=== PATIENT | female | born 1975 | race Hispanic/Latino ===

== ENCOUNTER 2020-02-12 21:39 | Observation (INO) | payer SELFPAY ==
[2020-02-12 22:20] LABS: Hemoglobin 13.3 g/dL (12.0-16.0); Mean Corpuscular HGB CONC 32.8 g/dL (32.0-36.0); Mean Corpuscular Hemoglobin 29.3 pg (27.0-31.0); Mean Corpuscular Volume 89.5 fL (78.0-98.0); Mean Platelet Volume 7.5 fL (7.4-10.4); Platelet Count 297 thou/uL (130-400); RBC Distribution Width 11.9 % (11.5-14.5); Red Blood Cell (RBC) Count 4.55 mill/uL (4.20-5.40); White Blood Cell (WBC) Count 8.3 thou/uL (4.8-10.8)
[2020-02-12 22:31] LABS: Eosinophils 4 % (0-10); Lymphocytes 44 % (21-51); MDiff Complete? YES; Monocytes 3 % (0-10); Neutrophil 49 % (42-75); Platelet Morphology Comment Appears Adequate
[2020-02-12 22:39] LABS: ALT (SGPT) 14 U/L (8-55); AST (SGOT) 14 U/L (5-34); Albumin 4.4 g/dL (3.5-5.0); Alkaline Phosphatase 74 U/L (40-110); Anion Gap 11 mmol/L (10-20); BUN (Urea Nitrogen) 11 mg/dL (7.0-18.7); Bilirubin, Total 0.3 mg/dL (0.2-1.2); Calc. Creatinine Clearance 0 mL/min (70-130); Calcium 9.2 mg/dL (7.8-10.44); Carbon Dioxide 27 mmol/L (22-29); Chloride 106 mmol/L (98-107); Estimated GFR-MDRD 78; Globulin 3.5 g/dL (2.4-3.5); Glucose 82 mg/dL (70-105); Potassium 3.4 mmol/L (3.5-5.1); Protein, Total 7.9 g/dL (6.0-8.3); Sodium 141 mmol/L (136-145)
[2020-02-12] MEDS ORDERED: Aspirin Chewable 81 MG TAB ONE (23:33)
[2020-02-12] MEDS ORDERED: hydrALAZINE 20 MG/ML VIAL SLOW IVP PRN (23:52)
[2020-02-12] MEDS ORDERED: Labetalol HCl 100 MG/20 ML VIAL SLOW IVP PRN (23:52)
[2020-02-12] MEDS ORDERED: Acetaminophen 500 MG TAB ONE (23:56)
[2020-02-13] MEDS ORDERED: Ondansetron ODT 4 MG TAB PO PRN (00:31)
[2020-02-13] MEDS ORDERED: Acetaminophen 325 MG TAB PO PRN (00:31)
[2020-02-13] MEDS ORDERED: Calcium Carbonate 500 MG ChewTAB PO PRN (00:31)
[2020-02-13] MEDS ORDERED: Senokot S 8.6-50 MG TAB PO PRN (00:31)
--- NOTE | 2020-02-13 01:08 | HP ---
PRIMARY CARE PHYSICIAN: Dr. Quispe. CHIEF COMPLAINT: Aphasia. HISTORY OF PRESENT ILLNESS: The patient is a 44-year-old female with no significant past medical history who reports to the ER for the above complaint. The patient reports that at 2114 this evening, while sitting on the couch, she developed acute aphasia. She also reports an associated posterior headache described as "when water is flushed up your nose quickly," exacerbated by nothing and relieved by Tylenol. She has never had a headache like this before. She denies any recent trauma or falls. She is not on any blood thinners. She has no history of migraine headaches. NO history DVT/ PE, not taking hormones. Denies vision changes. She denies any jaw claudication or focal motor deficit. She denies any dysphagia or inability to control secretions. She denies any fever or chills and she does not take any home medications. Her family members witnessed the episode and wanted to call 911. At first, she did not want them to call EMS; however, her daughter decided to call EMS. In the ER, patient was afebrile with a temperature of 98.6, normal blood pressure, normal pulse, normal respirations, reported 7/10 pain, 98% on room air. CT of the brain was negative for any acute process. Initial troponin was negative. Potassium was 3.4. CBC was unremarkable. Glucose was 106. The patient was given aspirin and 1 g of Tylenol and her symptoms resolved. She was in NIH of 1 for sensory deficit to the left face and left lower extremity. PAST MEDICAL HISTORY: None. PAST SURGICAL HISTORY: Tubal ligation. SOCIAL HISTORY: The patient lives with her family at home. She ambulates without any assistive devices. She does not work. She has no history of smoking, illicit drug use, or alcohol intake. FAMILY HISTORY: Contributory for diabetes and cardiac disease. ALLERGIES: NO KNOWN DRUG ALLERGIES. HOME MEDICATIONS: None. REVIEW OF SYSTEMS: All review of systems are negative unless otherwise stated in HPI. PHYSICAL EXAMINATION: VITAL SIGNS: Temperature 98.6, blood pressure 116/73, pulse 65, respirations 16 , 99% on room air. 0/10 pain. CONSTITUTIONAL: Patient is alert and oriented to person, place, and time. No acute distress. Nontoxic in appearance. HEENT: Head is atraumatic and normocephalic. Eyes, PERRLA. Extraocular muscles intact. Sclerae nonicteric. ENT: EACs patent bilaterally. TMs intact. Nares patent bilaterally. Oropharynx is clear. Uvula midline. Moist mucous membranes. No oral lesions. NECK: Full range of motion. No cervical tenderness. No cervical adenopathy. No JVD. RESPIRATIONS/CHEST: Respirations even and nonlabored. Clear to auscultation. No rhonchi, wheezes, or rales. CARDIOVASCULAR: Regular rate and rhythm. S1 and S2 appreciated. No murmurs, rubs, or gallops. ABDOMEN: Soft, nontender. Active bowel sounds. No guarding. No rigidity. No rebound tenderness. Negative Rovsing. Negative Christiansen sign. No abdominal bruit auscultated. BACK: Full range of motion. No central spinous tenderness. No CVA tenderness. EXTREMITIES: Bilateral upper extremities, full range of motion. Strength normal. Sensation intact. Palpable radial pulses. Lower extremities; full range of motion, normal strength, sensation intact. Palpable pedal pulses. No swelling. NEUROLOGIC: Cranial nerves 2 through 12 intact. No nystagmus. NIH of 1 for sensory deficit to the left lower extremity. No focal motor deficits. Normal gait. PSYCHIATRIC: A and O x3. Normal affect. LABS AND DIAGNOSTICS: EKG, sinus bradycardia at 57 beats per minute. No ST elevations. No T-wave inversions. Initial troponin negative. CT of brain negative for any acute process. Chest x-ray negative for any acute process. Sodium 141, potassium 3.4, chloride 106, carbon dioxide 27, BUN 11, creatinine 0.80, glucose 82, T bilirubin 0.3, AST 14, ALT 14, alkaline phosphatase 74, albumin 4.4. WBCs 8.3 , hemoglobin 13.3, hematocrit 40.7, platelets 297. IMPRESSION AND PLAN: 1. Transient ischemic attack, rule out stroke. We will admit the patient to stroke floor observation status. Expected length of stay less than 2 midnights. Patient last seen normal at 2114, reported acute onset of posterior headache and expressive aphasia. Headache resolved with Tylenol. Aphasia resolved. Upon examination, patient had NIH of 1 for some decreased sensation to left lower extremity. CT of brain was negative. EKG was sinus joselin. We will continue aspirin. We will add a statin. We will get an MRI, carotid Doppler, and echo. We will check a TSH, fasting lipid, UA, urine , folate, and B12 level. We will consult PT/ OT and neuro. We will perform neuro checks q.4 NIH q.shift. We will allow permissive hypertension. 2. Hypokalemia. The patient presented with a 3.4 potassium, mild. We will recheck in the a.m. 3. SCDs for deep venous thrombosis prophylaxis. No gastrointestinal prophylaxis. The patient is a full code. Medical contact is Gisella Perdomo, her daughter, [phone]. 4. Discussed the case with Dr. Cueto. Job ID: [id number] [facility]
[2020-02-13 02:12] VITALS: BMI 36.6
[2020-02-13 02:22] LABS: Bacteria/HPF 2+ HPF (None Seen); Bilirubin Negative (Negative); Blood, Urine 2+ (Negative); Clarity Turbid (Clear); Glucose, Urine (Dipstick) Normal (Negative); Ketone, Urine Negative (Negative); Leukocyte 500 Leu/uL (Negative); Nitrite 2+ (Negative); Pregnancy Test - Urine (BHCG) Negative (Negative); Protein, Urine (Dipstick) 20 mg/dL (Neg-Trace); Specific Gravity, Urine 1.029 (1.002-1.036); Squamous Epithelial 21-50 HPF (0-3); Urobilinogen Normal mg/dL (Less than 2); WBC/HPF Greater than 50 HPF (0-3)
[2020-02-13 02:23] LABS: Pregu Control Background? CLEAR/WHITE (CLR/WHITE); Pregu Control Bar Appear? YES (CONTROL BAR); Specific Gravity 1.029 (1.002-1.036)
[2020-02-13] MEDS: cefTRIAXone\\ROCEPHIN 1 GM in Sodium Chloride 0.9% 100 ML IVPB SCH (03:25)
[2020-02-13 05:31] LABS: Anion Gap 10 mmol/L (10-20); BUN (Urea Nitrogen) 10 mg/dL (7.0-18.7); Calc. Creatinine Clearance 142 mL/min (70-130); Calcium 8.6 mg/dL (7.8-10.44); Carbon Dioxide 24 mmol/L (22-29); Cardiac Risk 4.2 (Less than 4.5); Chloride 107 mmol/L (98-107); Cholesterol 176 mg/dl (< 200 Desired); Estimated GFR-MDRD Greater than 90; Glucose 83 mg/dL (70-105); HDL Cholesterol 42 mg/dL (>60 Neg Risk); LDL Cholesterol, Calculated 111 mg/dL; Potassium 3.5 mmol/L (3.5-5.1); Sodium 137 mmol/L (136-145); Triglycerides 113 mg/dL (Less than 150)
[2020-02-13 05:52] LABS: Hemoglobin 11.6 g/dL (12.0-16.0); Mean Corpuscular HGB CONC 32.7 g/dL (32.0-36.0); Mean Corpuscular Hemoglobin 29.6 pg (27.0-31.0); Mean Corpuscular Volume 90.4 fL (78.0-98.0); Mean Platelet Volume 7.7 fL (7.4-10.4); Platelet Count 252 thou/uL (130-400); RBC Distribution Width 11.7 % (11.5-14.5); Red Blood Cell (RBC) Count 3.92 mill/uL (4.20-5.40)
[2020-02-13 05:53] LABS: Band 2 % (5-11); Eosinophils 2 % (0-10); Lymphocytes 54 % (21-51); MDiff Complete? YES; Monocytes 4 % (0-10); Neutrophil 38 % (42-75); Platelet Morphology Comment Appears Adequate
--- NOTE | 2020-02-13 07:16 | RAD ---
FRONTAL RADIOGRAPH CHEST: Date: 02/12/2020 COMPARISON: None. HISTORY: Stroke-like symptoms. FINDINGS: No pneumothorax, pleural fluid, focal consolidation, or alveolar edema. Heart and mediastinal contour s are grossly unremarkable. IMPRESSION: No acute findings. POS: [facility]
--- NOTE | 2020-02-13 08:18 | CT ---
HEAD CT WITHOUT CONTRAST: DATE: 02/12/2020. COMPARISON: None. HISTORY: Diffuse weakness with dizziness and headache. TECHNIQUE: Axial CT imaging at 5 mm intervals from vertex through the skull base without contrast. FINDINGS: The imaged paranasal sinuses and mastoid air cells are well aerated. There is no displaced calvarial fracture, intracranial hemorrhage, midline shift, or mass effect. IMPRESSION: No acute findings. Results called to Dr. Patel at 10:00 p.m. 02/12/2020. CODE CR
[2020-02-13] MEDS: Aspirin 325 mg Enteric Coated Tablet PO SCH (08:22)
[2020-02-13] MEDS ORDERED: Aspirin 81 mg Enteric Coated Tablet PO SCH (09:00)
--- NOTE | 2020-02-13 09:09 | ULT ---
BILATERAL CAROTID DUPLEX ULTRASOUND: DATE: 02/13/2020 HISTORY: TIA. TECHNIQUE: Lepe scale ultrasound with color flow and spectral Doppler imaging of the extracranial carotid artery systems performed bilaterally. FINDINGS: There is no plaque formation or significant intimal wall thickening on either side. The peak systolic velocity in the right ICA measures 74 cm/second with an end-diastolic velocity of 2 3 cm/second and a systolic ratio of 0.80. The peak systolic velocity in the left ICA measures 71 cm/second with an end-diastolic velocity of 22 cm/second and a systolic ratio of 0.76. Flow in both vertebral arteries remains antegrade. IMPRESSION: No evidence of hemodynamically significant stenosis. POS: [facility]
--- NOTE | 2020-02-13 12:06 | MRI ---
MRI BRAIN WITHOUT CONTRAST: Date: 02/13/2020 HISTORY: Generalized weakness, which has resolved. Dizziness and headache. FINDINGS: Correlation made with previous day's CT scan. No restricted diffusion is seen. No evidence of infarct, hemorrhage, midline shift, or abnormal extra -axial fluid collections noted. The ventricular size is normal and the basilar cisterns are patent. T here is mucosal disease in the paranasal sinuses. IMPRESSION: No evidence of acute intracranial process. POS: [facility]
--- NOTE | 2020-02-13 12:08 | CON ---
NEUROLOGY CONS DATE OF CONSULTATION: 02/13/2020 REASON FOR CONSULTATION: Episode of expressive aphasia/ TIA HISTORY OF PRESENT ILLNESS: Ms. Montez is a 44-year-old female with no significant medical history, presented with an episode of receptive aphasia. According to the patient, yesterday around 2114, she was unable to talk, which was associated with headache at the back of the head. The patient denies focal weakness, focal paresthesias, nausea, vomiting, chest pain, abdominal pain, blurred vision, loss of vision, or loss of consciousness, involuntary body movements associated with the episode. She also denies dysphagia. The family members witnessed the episode and called 911. When she arrived to the emergency room, her NIH Stroke Scale was 1 because of decreased sensation in the left face and the left lower extremity, otherwise unremarkable. The episode of aphasia has been resolved. CT scan of the brain was done, which was negative for acute process. PAST MEDICAL HISTORY: None. PAST SURGICAL HISTORY: Tubal ligation. REVIEW OF SYSTEMS: All 14 systems were reviewed and were negative except the positive and negative mentioned in the HPI. SOCIAL HISTORY: The patient lives at home with family. She denies smoking, alcohol, or illegal drug use. FAMILY HISTORY: No family history of diabetes or coronary artery disease. ALLERGIES: NO KNOWN DRUG ALLERGIES. HOME MEDICATION: None. PHYSICAL EXAMINATION: VITAL SIGNS: Blood pressure 116/70, pulse 80, respiratory rate 18. CVS: Regular rate and rhythm. CHEST: Clear. ABDOMEN: Soft. NECK: No carotid bruit. NEUROLOGIC: Mental status, the patient is alert and oriented to person, place, and time. Recent and remote memory intact. Speech is clear. Motor, muscle tone and bulk are normal. Strength 5/5 bilaterally. Reflexes symmetric bilaterally. Gait deferred due to the patient's safety reasons. Cerebellar and finger-nose testing intact. DATA REVIEWED: I reviewed the labs, which were essentially unremarkable. Head CT reviewed, which was negative for acute intracranial pathology. ASSESSMENT AND PLAN: Ms. Ritika Montez is consulted for an episode of aphasia associated with headache. Differential diagnosis includes complicated migraine versus transient ischemic attack. Continue aspirin and high-intensity statin for secondary stroke prevention. Recommend MRI to rule out acute intracranial process. Carotid Dopplers reviewed, which were negative for hemodynamically significant stenosis. 2D echo pending. Check TSH, fasting lipid panel, urinalysis, hemoglobin A1c. Recommend PT/OT/speech. Telemetry. Neuro checks every 4 hours. Continue medical management per Primary Team. We will continue to follow. Plan discussed in detail with the patient and with the floor team during the stroke rounds. Thank you for the consult. Job ID: [id number] MARANDA
--- NOTE | 2020-02-13 19:03 | PDOC.HOSPP ---
- Subjective Encounter Date: 02/13/20 Encounter Time: 15:01 Subjective: Patient states she feels less tired than she did yesterday. States she was encouraged by her daughter to come in after she suddenly went limp while sitting watching TV. Denies LOC but states she felt weak and unable to open her eyes. She was well aware of what was going on around her and she could hear. Her weakness has improved. Reports having urinary hesitancy, but no dysuria or retention. She is otherwise without any complaints. Patient has undergone TIA work-up. Carotid US negative. MRI brain unremarkable. She has had an Echo done but results pending. - Objective Vital Signs & Weight: Vital Signs (12 hours) Temp Pulse Pulse Pulse Resp BP BP 02/13/20 17:20 02/13/20 15:45 98.8 F 58 L 16 02/13/20 14:49 60 63 112/63 127/69 02/13/20 13:06 105/60 02/13/20 11:49 98.6 F 56 L 16 02/13/20 07:50 98.7 F 60 16 BP BP BP BP Pulse Ox 02/13/20 17:20 116/63 109/71 101/56 L 02/13/20 15:45 104/59 L 99 02/13/20 14:49 02/13/20 13:06 02/13/20 11:49 105/58 L 98 02/13/20 07:50 127/86 97 Weight Weight 187 lb 6.4 oz Result Diagrams: 02/13/20 04:32 02/13/20 04:32 Additional Labs: Accuchecks 02/12/20 21:52 POC Glucose 106 Radiology Reviewed by me: Yes EKG Reviewed by me: Yes Hospitalist ROS - Review of Systems Constitutional: reports: malaise. denies: fever, chills, sweats, weakness, other Eyes: denies: pain, vision change, conjunctivae inflammation, eyelid inflammation, redness, other ENT: denies: ear pain, ear discharge, nose pain, nose discharge, nose congestion , mouth pain, mouth swelling, throat pain, throat swelling, other Respiratory: denies: cough, dry, shortness of breath, hemoptysis, SOB with excertion, pleuritic pain, sputum, wheezing, other Cardiovascular: denies: chest pain, palpitations, orthopnea, paroxysmal noc. dyspnea, edema, light headedness, other Gastrointestinal: denies: nausea, vomiting, abdominal pain, diarrhea, constipation, melena, hematochezia, other Genitourinary: denies: dysuria, frequency, incontinence, hematuria, retention, other Musculoskeletal: denies: neck pain, shoulder pain, arm pain, back pain, hand pain, leg pain, foot pain, other Skin: denies: rash, lesions, yo, bruising, other Neurological: denies: weakness, numbness, incoordination, change in speech, confusion, seizures, other - Medication Medications: Active Medications Generic Name Dose Route Start Last Admin Trade Name Freq PRN Reason Stop Dose Admin Acetaminophen 650 mg 02/13/20 00:31 02/13/20 04:49 Tylenol PO 650 mg Q4H PRN Administration Headache/Fever/Mild Pain (1-3) Aspirin 325 mg 02/13/20 09:00 02/13/20 08:22 Ecotrin PO 325 mg DAILY ZOILA Administration Ceftriaxone Sodium 1 gm/ 100 mls @ 200 mls/hr 02/13/20 03:00 02/13/20 03:25 Sodium Chloride IVPB 100 mls Q24HR ZOILA Administration - Exam General Appearance: NAD, awake alert Eye: PERRL, anicteric sclera ENT: normocephalic atraumatic, no oropharyngeal lesions, moist mucosa Neck: supple, symmetric, no lymphadenopathy Heart: RRR, no murmur, no gallops, no rubs, normal peripheral pulses Respiratory: CTAB, no wheezes, no rales, no ronchi, normal chest expansion, no tachypnea Gastrointestinal: soft, non-tender, non-distended, normal bowel sounds, no guarding, no rigidity Extremities: no edema Skin: normal turgor, no rashes Neurological: cranial nerve grossly intact, no weakness Musculoskeletal: normal tone, normal strength, no muscle wasting Psychiatric: normal affect, normal behavior, A&O x 3 Hosp A/P (1) Generalized weakness Code(s): R53.1 - WEAKNESS Status: Acute (2) Hypokalemia Code(s): E87.6 - HYPOKALEMIA Status: Resolved (3) UTI (urinary tract infection) Status: Acute - Plan old records reviewed/req, continue antibiotics, PT/OT Continue abx for UTI. Awaiting UC&S. TIA Workup unremarkable thus far, Echo is still pending. PT/OT consulted. Orthostatic BPs. D/C PRN antihypertensives. Patients BP has been on low side. Has never been on BP meds at home. H/H trending down, possibly due to fluids received yesterday. Repeat H/H now. Type & Screen, if H/H further reduced would transfuse. Check stool for occult blood. No s/s of GI bleed at present. Consider GI consult based on above.
[2020-02-13] MEDS ORDERED: Sodium Chloride 0.9% 500 ML IV SCH (19:15)
[2020-02-13 20:03] LABS: Hemoglobin 12.5 g/dL (12.0-16.0)
[2020-02-13] MEDS ORDERED: Atorvastatin Calcium 40 MG TAB PO SCH (21:00)
[2020-02-14] MEDS: cefTRIAXone\\ROCEPHIN 1 GM in Sodium Chloride 0.9% 100 ML IVPB SCH (04:20)
[2020-02-14 05:20] LABS: #Eosinphils 0.2 thou/uL (0.0-0.7); #Lymphocytes 3.3 thou/uL (1.20-3.40); #Monocytes 0.3 thou/uL (0.11-0.59); #Neutrophils 3.1 thou/uL (1.40-6.50); %Basophils 0.2 % (0.0-1.0); %Eosinophils 2.4 % (0.0-10.0); %Lymphocytes 48.2 % (21.0-51.0); %Monocytes 3.9 % (0.0-10.0); %Neutrophils 45.2 % (42.0-75.0); Hemoglobin 12.3 g/dL (12.0-16.0); Mean Corpuscular HGB CONC 34.4 g/dL (32.0-36.0); Mean Corpuscular Volume 90.1 fL (78.0-98.0); Mean Platelet Volume 7.5 fL (7.4-10.4); Platelet Count 249 thou/uL (130-400); RBC Distribution Width 11.6 % (11.5-14.5); Red Blood Cell (RBC) Count 3.96 mill/uL (4.20-5.40); White Blood Cell (WBC) Count 6.8 thou/uL (4.8-10.8)
[2020-02-14 05:36] LABS: Anion Gap 10 mmol/L (10-20); BUN (Urea Nitrogen) 8 mg/dL (7.0-18.7); Calc. Creatinine Clearance 132 mL/min (70-130); Calcium 8.6 mg/dL (7.8-10.44); Carbon Dioxide 25 mmol/L (22-29); Chloride 107 mmol/L (98-107); Estimated GFR-MDRD 87; Glucose 80 mg/dL (70-105); Potassium 3.5 mmol/L (3.5-5.1); Sodium 138 mmol/L (136-145)
--- NOTE | 2020-02-14 07:30 | PDOC.HOSPP ---
- Subjective Encounter Date: 02/14/20 Encounter Time: 09:40 Subjective: Patient without complaints. No further headache. No numbness. No trouble with speech. - Objective Vital Signs & Weight: Vital Signs (12 hours) Temp Pulse Resp BP BP Pulse Ox 02/14/20 04:00 97.7 F 61 16 110/56 L 97 02/13/20 20:15 98.5 F 59 L 14 111/62 100 Weight Weight 187 lb 6.4 oz Result Diagrams: 02/14/20 04:46 02/14/20 04:46 Hospitalist ROS - Review of Systems Constitutional: denies: fever, chills Respiratory: denies: cough, shortness of breath Cardiovascular: denies: chest pain, palpitations Gastrointestinal: denies: nausea, vomiting Genitourinary: denies: dysuria, hematuria Neurological: denies: weakness, numbness, incoordination, change in speech, confusion, seizures - Medication Medications: Active Medications Generic Name Dose Route Start Last Admin Trade Name Freq PRN Reason Stop Dose Admin Acetaminophen 650 mg 02/13/20 00:31 02/13/20 04:49 Tylenol PO 650 mg Q4H PRN Administration Headache/Fever/Mild Pain (1-3) Aspirin 325 mg 02/13/20 09:00 02/13/20 08:22 Ecotrin PO 325 mg DAILY ZOILA Administration Atorvastatin Calcium 40 mg 02/13/20 21:00 02/13/20 21:49 Lipitor PO 40 mg HS ZOILA Administration - Exam General Appearance: NAD, awake alert ENT: moist mucosa Heart: RRR, no murmur, no gallops, no rubs Respiratory: CTAB, no wheezes, no rales, no ronchi Gastrointestinal: soft, non-tender, non-distended, normal bowel sounds Neurological: cranial nerve grossly intact, normal sensation to touch, no weakness, no focal deficits Musculoskeletal: normal tone, normal strength Psychiatric: normal affect, normal behavior, A&O x 3 Hosp A/P (1) Aphasia Code(s): R47.01 - APHASIA Status: Resolved Plan: TIA vs. complicated migraine (2) Headache Code(s): R51 - HEADACHE Status: Resolved (3) Folic acid deficiency Code(s): E53.8 - DEFICIENCY OF OTHER SPECIFIED B GROUP VITAMINS Status: Acute (4) UTI (urinary tract infection) Status: Acute Qualifiers: Urinary tract infection type: acute cystitis (5) Hypokalemia Code(s): E87.6 - HYPOKALEMIA Status: Resolved - Plan Patient with negative carotids, MRI, and CT brain. Lipid profile normal. Suspect TIA or could be a complicated migraine. Home on ASA and Statin in case of TIA. UA with UTI though no symptoms, not complicated. E. coli on culture resistant to Cipro. Will switch to oral Macrobid. Neurology has cleared to go home. Was kept due to drop in H/H yesterday, but on recheck stable today. Does have low folic acid so will send home with supplement.
[2020-02-14 07:43] VITALS: BP 115/66; TEMP 98.8
[2020-02-14] MEDS: Aspirin 325 mg Enteric Coated Tablet PO SCH (08:07)
[2020-02-14] MEDS ORDERED: Folic Acid 1 MG TAB PO SCH (09:00)
[2020-02-14] MEDS ORDERED: Nitrofurantoin Monohyd/M-Cryst 100 MG CAP PO SCH (09:00)
--- NOTE | 2020-02-14 16:36 | DIS ---
DATE OF ADMISSION: 02/13/2020 DATE OF DISCHARGE: 02/14/2020 PRIMARY CARE PHYSICIAN: Dr. Quispe. REASON FOR ADMISSION: Aphasia with headache. DIAGNOSES AT DISCHARGE: 1. Transient ischemic attack versus complicated migraine resolved. 2. Folic acid deficiency. 3. Acute cystitis with Escherichia coli. 4. Hypokalemia, resolved. PROCEDURES: 1. CT of the brain without contrast showing no acute findings. 2. Ultrasound of the bilateral carotid artery showing no evidence for hemodynamically significant stenosis. 3. MRI of the brain without contrast showing no evidence for acute intracranial process, just some mucosal disease in the paranasal sinuses. CONSULTATIONS: Neurology, Dr. Bravo. SUMMARY OF HOSPITAL COURSE: This is a 44-year-old female without any past medical history, who developed acute aphasia associated with a posterior headache while she was sitting on her couch. She was brought in by EMS. By the time she got to the emergency room, her aphasia resolved. Her headache had improved after being given aspirin and 1 g of Tylenol and she did have a little bit of numbness on the left side of her face and left lower extremity. At that time, an NIH of 1. She had a negative CT scan and was admitted to the hospital. She had resolution of all of her symptoms completely. MRI was negative and carotid ultrasound was negative as well. The patient did have a fasting lipid profile done, which showed normal triglycerides, a total cholesterol of 176, LDL of 111, and HDL 42. During her hospitalization, her hemoglobin did drop from 13 to 11. On her next hospital day, she had a folic acid and B12 done and showed a low folic acid. She was started on supplementation. A recheck of her hemoglobin was normal. She did have urinalysis done in the emergency room, which showed urinary tract infection though she was asymptomatic at that time. A urine culture showed greater than 100,000 colony-forming units of E coli resistant to Cipro, but sensitive to nitrofurantoin. She was initially given Rocephin in the hospital and that was switched to Macrobid at discharge. The patient was asymptomatic at the time of discharge and was cleared for discharge by Neurology. DISCHARGE MANAGEMENT: Discharged home. ACTIVITY: As tolerated. DIET: Regular diet. MEDICATIONS: 1. Aspirin 81 mg daily, 30 tablets dispensed. 2. Atorvastatin 40 mg at night, 30 tablets dispensed. 3. Folic acid 1 mg daily, 30 tablets dispensed. 4. Nitrofurantoin 100 mg twice a day, 12 capsules dispensed. FOLLOWUP: The patient is to follow up with her [facility] in 1 to 2 weeks. Job ID: [id number]
== END 2020-02-14 10:22 | disposition home or self-care (01) ==
LOC: ERS 21:39 → 2SE 02-13 00:38 → INTOOBSV 02-13 00:38
PROVIDERS: ADMIT Internal Medicine; ATTEND Internal Medicine
DX: G45.9 Transient cerebral ischemic attack, unspecified (principal); E53.8 Deficiency of other specified B group vitamins; N30.00 Acute cystitis without hematuria; B96.20 Unspecified Escherichia coli [E. coli] as the cause of diseases classified elsewhere; E87.6 Hypokalemia; Z79.82 Long term (current) use of aspirin; Z79.899 Other long term (current) drug therapy
CPT/HCPCS: 36415; 36416; 70450; 70551; 71045; 80048; 80053; 80061; 81001; 81025; 82274; 82607; 82746; 84443; 84484; 85025; 86850; 86900; 86901; 87077; 87086; 87186; 93005; 93306; 93880; 96365; 96376; G0378; J0696; J3490

== ENCOUNTER 2020-05-23 11:05 | Observation (INO) | payer OTHER, SELFPAY ==
--- NOTE | 2020-05-23 11:36 | CT ---
Exam: Head CT without contrast HISTORY: Level 2 stroke. History of ischemic stroke in January. Numbness. Dizziness. Vertigo. COMPARISON: 02/12/2020 FINDINGS: Hemorrhage: No intraparenchymal hemorrhage or extra-axial hematoma. Brain parenchyma: Cortical jacobo-white matter differentiation is preserved. No mass effect or midline shift. Basilar cisterns are patent. Ventricular system: Ventricles and sulci are patent and symmetric. Calvarium: Intact. Sinuses and mastoid air cells: Adequate aeration. IMPRESSION: No acute intracranial process. Results study discussed with Dr. Chan 05/23/2020 at 11:33 AM Code CR
[2020-05-23 11:43] LABS: #Basophils 0.1 thou/uL (0.0-0.2); #Eosinphils 0.2 thou/uL (0.0-0.7); #Lymphocytes 2.8 thou/uL (1.20-3.40); #Monocytes 0.2 thou/uL (0.11-0.59); #Neutrophils 2.7 thou/uL (1.40-6.50); %Basophils 1.6 % (0.0-1.0); %Eosinophils 2.6 % (0.0-10.0); %Lymphocytes 47.2 % (21.0-51.0); %Monocytes 3.2 % (0.0-10.0); %Neutrophils 45.5 % (42.0-75.0); Hemoglobin 13.5 g/dL (12.0-16.0); Mean Corpuscular HGB CONC 32.7 g/dL (32.0-36.0); Mean Corpuscular Hemoglobin 29.6 pg (27.0-31.0); Mean Corpuscular Volume 90.6 fL (78.0-98.0); Mean Platelet Volume 7.6 fL (7.4-10.4); Platelet Count 267 thou/uL (130-400); RBC Distribution Width 12.4 % (11.5-14.5); Red Blood Cell (RBC) Count 4.57 mill/uL (4.20-5.40)
[2020-05-23 11:51] LABS: INR-International Normal Ratio 0.9; PTT 27.7 sec (22.9-36.1); Prothrombin Time 12.1 sec (12.0-14.7)
[2020-05-23 11:54] LABS: ALT (SGPT) 18 U/L (8-55); AST (SGOT) 16 U/L (5-34); Alkaline Phosphatase 81 U/L (40-110); Anion Gap 12 mmol/L (10-20); BUN (Urea Nitrogen) 11 mg/dL (7.0-18.7); Bilirubin, Total 0.6 mg/dL (0.2-1.2); CK (CPK) 132 U/L (29-168); Calc. Creatinine Clearance 0 mL/min (70-130); Calcium 9.1 mg/dL (7.8-10.44); Carbon Dioxide 24 mmol/L (22-29); Chloride 106 mmol/L (98-107); Estimated GFR-MDRD 84; Globulin 3.4 g/dL (2.4-3.5); Glucose 87 mg/dL (70-105); Potassium 3.9 mmol/L (3.5-5.1); Protein, Total 7.4 g/dL (6.0-8.3); Sodium 138 mmol/L (136-145)
--- NOTE | 2020-05-23 11:57 | RAD ---
Exam: Chest one view HISTORY:Left-sided numbness. Stroke. Comparison: 02/12/2020 FINDINGS: Cardiac silhouette: Normal Aorta: Unremarkable Pulmonary vessels: Normal Costophrenic angles: Clear LUNGS: No masses or consolidation. Pneumothorax: None Osseous abnormalities: None IMPRESSION: No acute cardiopulmonary process.
[2020-05-23] MEDS ORDERED: Aspirin Chewable 81 MG TAB ONE (12:45)
[2020-05-23] MEDS ORDERED: Acetaminophen 500 MG TAB ONE (12:51)
[2020-05-23] MEDS ORDERED: HYDROcodone/Acetaminophen 5/325 mg Tablet PO PRN (13:48)
[2020-05-23] MEDS ORDERED: Ondansetron ODT 4 MG TAB PO PRN (13:48)
[2020-05-23] MEDS ORDERED: Acetaminophen 325 MG TAB PO PRN (13:48)
[2020-05-23] MEDS ORDERED: Meclizine HCl 12.5 MG TAB PO PRN (14:01)
[2020-05-23 14:33] VITALS: BMI 35.7
--- NOTE | 2020-05-23 14:39 | PDOC.HHP ---
Hospitalist HPI - History of Present Illness Left-sided facial and arm tingling with heavy feeling History of Present Illness: PCP: Perry Patient is a 44-year-old female with past medical history for TIA versus complex migraine in January of this year. She presents to the ER today for vertigo and left arm and left-sided face numbness which began last night around 9 PM. She states that the head pain feels like it did when she was seen in January, however, she feels like this is affecting her left side when last time she was here it had affected her right side. Her dizziness is constant and even when her eyes are closed she feels like the room is still moving. She states there are times where it feels like it is lessening however that resolves quickly and the dizziness returns fully. No vomiting but she has felt nauseated with this. She denies any speech or swallowing difficulties. Denies chest pain, shortness of breath, abdominal pain, fevers, contact with sick persons. Patient was pr escribed cholesterol medication with her last visit here in January however she is a little up with her physician since that visit to have it refilled. She has continued to take a baby aspirin daily since that time. ED Course: VITAL SIGNS ThuMay 23, 2020 11:09 RYAN Stanton Lacee BP: 114/70, Pulse: 62, Resp: 18, O2 sat: 98 on (Room Air), Time: 05/23/2020 11:09. VITAL SIGNS ThuMay 23, 2020 11:46 RYAN Sapp Jenifer BP: 154/87, MAP: 109, Pulse: 58, Resp: 12 (Non-Labored), O2 sat: 99 on (Room Air), Time: 05/23/2020 11:46. VITAL SIGNS ThuMay 23, 2020 12:48 RYAN Sapp Jenifer BP: 110/72, MAP: 84, Pulse: 56, Resp: 14 (Non-Labored), Temp: 97.8 (Oral), Pain: 8, O2 sat: 99 on (Room Air), Time: 05/23/2020 12:48. Today in the ER the patient had lab work completed, chest x-ray, EKG, head CT. She was given Tylenol 1 g orally and aspirin 324 mg orally. NIH in the ER was a 1. Hospitalist ROS - Review of Systems Constitutional: reports: other (Dizziness, headache) Neurological: reports: other (Left-sided facial and left arm numbness) - Medication Medications: No known drug allergies Current medications: Aspirin 81 mg Hospitalist History - Past Medical History Source: patient Cardiac: reports: no pertinent history Pulmonary: reports: no pertinent history REGULATORY ASSOCIATE: reports: Other (TIA versus complex migraine in February 2020) - Past Surgical History Past Surgical History: reports: no pertinent history - Family History Family History: reports: cancer, cardiac disorder - Social History Smoking Status: Never smoker Alcohol: reports: None Drugs: reports: none Living Situation: With Family Occupation: [employer] Activity level: independent ambulation - Exam General Appearance: NAD, awake alert Eye: PERRL ENT: normocephalic atraumatic, moist mucosa Neck: supple, symmetric Heart: RRR, no murmur, no gallops, no rubs, normal peripheral pulses Respiratory: CTAB, no wheezes, no rales, no ronchi Gastrointestinal: soft, non-tender, non-distended, normal bowel sounds Extremities: no cyanosis, no edema Neurological: cranial nerve grossly intact, no weakness Neurological - other findings: Left face & arm tingling, strength intact, cerebellar intact, nystagmus Musculoskeletal: normal tone, normal strength Psychiatric: A&O x 3 Hospitalist Results - Labs Result Diagrams: 05/23/20 11:24 05/23/20 11:24 Lab results: WBC 6.0 thou/uL (4.8-10.8) 05/23/20 11:24 Hgb 13.5 g/dL (12.0-16.0) 05/23/20 11:24 Hct 41.4 % (36.0-47.0) 05/23/20 11:24 MCV 90.6 fL (78.0-98.0) 05/23/20 11:24 Plt Count 267 thou/uL (130-400) 05/23/20 11:24 Neutrophils % 45.5 % (42.0-75.0) 05/23/20 11:24 Sodium 138 mmol/L (136-145) 05/23/20 11:24 Potassium 3.9 mmol/L (3.5-5.1) 05/23/20 11:24 Chloride 106 mmol/L (98-107) 05/23/20 11:24 Carbon Dioxide 24 mmol/L (22-29) 05/23/20 11:24 BUN 11 mg/dL (7.0-18.7) 05/23/20 11:24 Creatinine 0.75 mg/dL (0.6-1.1) 05/23/20 11:24 Glucose 87 mg/dL (70-105) 05/23/20 11:24 Calcium 9.1 mg/dL (7.8-10.44) 05/23/20 11:24 Total Bilirubin 0.6 mg/dL (0.2-1.2) 05/23/20 11:24 AST 16 U/L (5-34) 05/23/20 11:24 ALT 18 U/L (8-55) 05/23/20 11:24 Alkaline Phosphatase 81 U/L (40-110) 05/23/20 11:24 Creatine Kinase 132 U/L (29-168) 05/23/20 11:24 Troponin I Less than 0.010 ng/mL (< 0.028) 05/23/20 11:24 Serum Total Protein 7.4 g/dL (6.0-8.3) 05/23/20 11:24 Albumin 4.0 g/dL (3.5-5.0) 05/23/20 11:24 - EKG Interpretation EKG: Sinus bradycardia 52 bpm with no ectopic beats - Radiology Interpretation Chest x-ray Status: image reviewed by me, report reviewed by me Additional Comment: Exam: Chest one view HISTORY:Left-sided numbness. Stroke. Comparison: 02/12/2020 FINDINGS: Cardiac silhouette: Normal Aorta: Unremarkable Pulmonary vessels: Normal Costophrenic angles: Clear LUNGS: No masses or consolidation. Pneumothorax: None Osseous abnormalities: None IMPRESSION: No acute cardiopulmonary process. CT scan - chest Status: report reviewed by me Additional Comment: Exam: Head CT without contrast HISTORY: Level 2 stroke. History of ischemic stroke in January. Numbness. Dizziness. Vertigo. COMPARISON: 02/12/2020 FINDINGS: Hemorrhage: No intraparenchymal hemorrhage or extra-axial hematoma. Brain parenchyma: Cortical jacobo-white matter differentiation is preserved. No mass effect or midline shift. Basilar cisterns are patent. Ventricular system: Ventricles and sulci are patent and symmetric. Calvarium: Intact. Sinuses and mastoid air cells: Adequate aeration. IMPRESSION: No acute intracranial process. Hospitalist H&P A/P - Plan Plan: TIA versus complex migraine To the stroke unit on telemetry monitoring for observation MRI of the brain ordered Echo orderedwas ordered on prior admission but no results were available Neurology consult Urinalysis ordered and to be collected FLP in a.m. Neurochecks every 4 hours with NIH every shift Monitor vital signs Headache As needed pain medication available No photophobia Vertigo Dizziness continues when eyes are closed Nystagmus present Meclizine available as needed CODE STATUS: Full Surrogate decision maker is her daughter, Gricel
[2020-05-23] MEDS ORDERED: FLU VACC QS2020-21(6MOS UP)/PF 60 MCG/0.5 ML SYRINGE IM ONE (14:45)
--- NOTE | 2020-05-23 16:02 | MRI ---
MRI OF BRAIN WITHOUT CONTRASTZ; 05/23/20 INDICATIONS: TIA. COMPARISON: Comparison made to prior MRI of brain dated 02/13/[address] 05/23/20. FINDINGS: Ventricles have normal size and position. No evidence of restricted diffusion. No mass or edema. No w jacqueline matter abnormality. No evidence of acute infarct. The intracranial internal carotid arteries and cerebral arteries show expected flow voids. The paranasal sinuses and mastoids are clear. IMPRESSION: No acute findings. POS: AGW
[2020-05-23 16:42] LABS: SARS-CoV-2 MS2 Positive; SARS-CoV-2 N Gene Negative; SARS-CoV-2 S Gene Positive; SARS-CoV-2 by NAA DETECTED (NotDetected); SARS-CoV-2 orf1ab Positive
[2020-05-23 19:37] LABS: Bilirubin Negative (Negative); Clarity Turbid (Clear); Glucose, Urine (Dipstick) Normal (Negative); Ketone, Urine Negative (Negative); Leukocyte 25 Leu/uL (Negative); Nitrite Negative (Negative); Protein, Urine (Dipstick) Negative (Neg-Trace); Specific Gravity, Urine 1.021 (1.002-1.036); Urobilinogen Normal mg/dL (Less than 2); pH, Urine 6.5 (5.0-9.0)
[2020-05-23 19:43] LABS: Bacteria/HPF 1+ HPF (None Seen)
[2020-05-23 19:45] LABS: Blood, Urine 3+ (Negative); RBC/HPF 0-3 HPF (0-3)
[2020-05-23] MEDS ORDERED: Atorvastatin Calcium 40 MG TAB PO SCH (21:00)
[2020-05-24 05:18] LABS: #Eosinphils 0.2 thou/uL (0.0-0.7); #Lymphocytes 2.9 thou/uL (1.20-3.40); #Monocytes 0.3 thou/uL (0.11-0.59); #Neutrophils 2.7 thou/uL (1.40-6.50); %Basophils 0.7 % (0.0-1.0); %Eosinophils 2.7 % (0.0-10.0); %Lymphocytes 47.2 % (21.0-51.0); %Monocytes 4.1 % (0.0-10.0); %Neutrophils 45.3 % (42.0-75.0); Hemoglobin 12.3 g/dL (12.0-16.0); Mean Corpuscular HGB CONC 33.6 g/dL (32.0-36.0); Mean Corpuscular Hemoglobin 30.3 pg (27.0-31.0); Mean Corpuscular Volume 90.2 fL (78.0-98.0); Mean Platelet Volume 7.6 fL (7.4-10.4); Platelet Count 251 thou/uL (130-400); RBC Distribution Width 12.4 % (11.5-14.5); Red Blood Cell (RBC) Count 4.07 mill/uL (4.20-5.40)
[2020-05-24 05:35] LABS: Anion Gap 13 mmol/L (10-20); BUN (Urea Nitrogen) 12 mg/dL (7.0-18.7); Calc. Creatinine Clearance 118 mL/min (70-130); Carbon Dioxide 23 mmol/L (22-29); Chloride 106 mmol/L (98-107); Estimated GFR-MDRD 78; Potassium 3.8 mmol/L (3.5-5.1); Sodium 138 mmol/L (136-145)
[2020-05-24 05:36] LABS: Calcium 8.7 mg/dL (7.8-10.44); Cardiac Risk 3.9 (Less than 4.5); Cholesterol 174 mg/dl (< 200 Desired); Glucose 90 mg/dL (70-105); HDL Cholesterol 45 mg/dL (>60 Neg Risk); LDL Cholesterol, Calculated 112 mg/dL; Triglycerides 84 mg/dL (Less than 150)
--- NOTE | 2020-05-24 07:52 | PDOC.HOSPP ---
- Subjective Encounter Date: 05/24/20 Encounter Time: 07:50 Subjective: COVID pos. no respiratory complaints. no loss taste, smell - Objective Vital Signs & Weight: Vital Signs (12 hours) Temp Pulse Resp BP Pulse Ox 05/24/20 04:40 98 F 58 L 16 92/49 L 98 05/24/20 00:23 98.3 F 64 16 106/58 L 98 05/23/20 22:30 98.1 F 57 L 16 100/54 L 98 Weight Weight 183 lb I&O: 05/23/20 05/24/20 05/25/20 06:59 06:59 06:59 Intake Total 500 Output Total 600 Balance -100 Result Diagrams: 05/24/20 04:52 05/24/20 04:52 Additional Labs: Accuchecks 05/23/20 11:16 POC Glucose 85 Hospitalist ROS - Medication Medications: Active Medications Generic Name Dose Route Start Last Admin Trade Name Freq PRN Reason Stop Dose Admin Acetaminophen 650 mg 05/23/20 13:48 05/23/20 22:48 Acetaminophen 325 Mg Tab PO 650 mg Q4H PRN Administration Headache/Fever/Mild Pain (1-3) Hydrocodone Bitart/Acetaminophen 1 tab 05/23/20 13:48 05/23/20 14:48 Hydrocodone/Acetaminophen 5/325 Mg Tablet PO 1 tab Q4H PRN Administration Moderate Pain (4-6) Atorvastatin Calcium 40 mg 05/23/20 21:00 05/23/20 22:30 Atorvastatin Calcium 40 Mg Tab PO 40 mg HS ZOILA Administration - Exam General Appearance: awake alert Neck: no JVD Heart: RRR, no murmur Respiratory: CTAB Gastrointestinal: soft, normal bowel sounds Extremities: no edema Hosp A/P (1) COVID-19 Code(s): U07.1 - COVID-19 Status: Acute (2) Dizziness Code(s): R42 - DIZZINESS AND GIDDINESS Status: Acute - Plan start decadron start Vit C, Zn, Vit D3 CRP, D-dimer, ferriten
[2020-05-24] MEDS ORDERED: Zinc Sulfate 220 MG CAP PO SCH (09:00)
[2020-05-24] MEDS ORDERED: Cholecalciferol 1,000 UNITS (25 MCG) TAB PO SCH (09:00)
[2020-05-24] MEDS ORDERED: Aspirin 325 mg Enteric Coated Tablet PO SCH (09:00)
[2020-05-24] MEDS ORDERED: Dexamethasone 20 MG/5 ML VIAL SLOW IVP SCH (09:00)
[2020-05-24] MEDS ORDERED: Dexamethasone 4 mg/ml Vial SLOW IVP SCH (09:00)
[2020-05-24 11:00] VITALS: BP 111/58; TEMP 99.5
--- NOTE | 2020-05-24 12:57 | CON ---
NEUROLOGY CONSULTATION DATE OF CONSULTATION: 05/24/2020 REASON FOR CONSULTATION: Left facial and left arm paresthesias with headache. HISTORY OF PRESENT ILLNESS: Ms. Ritika Montez is a 44-year-old female with a past history of medical history significant for complex migraine with neurological features versus TIA in January this year, presented with vertigo with headache and left arm and facial paresthesias, which began around 9 p.m. along with dizziness. Per the patient, the symptoms were similar in January, but at this time, it has affected her left side and the last time, it affected her right side. The patient does report nausea, but denies vomiting at that time. She denies any speech or swallowing issues or focal weakness, speech or swallowing issues. She also denies shortness of breath, chest pain, fever, recent sick contacts or exposure to COVID. She has been taking baby aspirin daily since that time, but unable to take her cholesterol medications. In the emergency room, head CT was done, which was negative for acute intracranial pathology. She was given Tylenol and aspirin, and her NIH score was 1. Vital signs; blood pressure 114/70, pulse 62, and respiratory rate 18. REVIEW OF SYSTEMS: All systems were reviewed and were negative except the pertinent positives and negatives mentioned in the HPI. ALLERGIES: NO KNOWN DRUG ALLERGIES. CURRENT MEDICATION: Aspirin 81 mg daily. PAST MEDICAL HISTORY: Episode of migraine versus TIA in February 2020. PAST SURGICAL HISTORY: No significant past surgical history. FAMILY HISTORY: Significant for cancer and coronary artery disease. SOCIAL HISTORY: The patient has a [employer]. She is independent. Denies smoking, alcohol, or illegal drug use. Vital Signs & Weight: Vital Signs (12 hours) Temp Pulse Resp BP Pulse Ox 05/24/20 04:40 98 F 58 L 16 92/49 L 98 05/24/20 00:23 98.3 F 64 16 106/58 L 98 05/23/20 22:30 98.1 F 57 L 16 100/54 L 98 Weight Weight 183 lb I&O: 05/23/20 05/24/20 05/25/20 06:59 06:59 06:59 Intake Total 500 Output Total 600 Balance -100 Additional Labs: Accuchecks 05/23/20 11:16 POC Glucose 85 Active Medications Generic Name Dose Route Start Last Admin Trade Name Freq PRN Reason Stop Dose Admin Acetaminophen 650 mg 05/23/20 13:48 05/23/20 22:48 Acetaminophen 325 Mg Tab PO 650 mg Q4H PRN Administration Headache/Fever/Mild Pain (1-3) Hydrocodone Bitart/Acetaminophen 1 tab 05/23/20 13:48 05/23/20 14:48 Hydrocodone/Acetaminophen 5/325 Mg Tablet PO 1 tab Q4H PRN Administration Moderate Pain (4-6) Atorvastatin Calcium 40 mg 05/23/20 21:00 05/23/20 22:30 Atorvastatin Calcium 40 Mg Tab PO 40 mg HS ZOILA Administration Hosp A/P PHYSICAL EXAMINATION: General Appearance: NAD, awake alert Eye: PERRL ENT: normocephalic atraumatic, moist mucosa Neck: supple, symmetric Heart: RRR, no murmur, no gallops, no rubs, normal peripheral pulses Respiratory: CTAB, no wheezes, no rales, no ronchi Gastrointestinal: soft, non-tender, non-distended, normal bowel sounds Extremities: no cyanosis, no edema Neurological: Mental status, the patient is alert and oriented to person, place, and time. Speech is clear. Cranial nerves 2 through 12 intact. Motor, muscle tone and bulk are normal. Strength 5/5 bilaterally. Sensory intact. Cerebellar, finger-nose testing intact. Gait deferred due to the patient's safety reason. LABORATORY RESULTS: The patient's CBC and CMP reviewed, which were essentially unremarkable, and EKG showed sinus bradycardia with [address] scan did not reveal any acute intracranial pathology. WBC 6.0 thou/uL (4.8-10.8) 05/23/20 11:24 Hgb 13.5 g/dL (12.0-16.0) 05/23/20 11:24 Hct 41.4 % (36.0-47.0) 05/23/20 11:24 MCV 90.6 fL (78.0-98.0) 05/23/20 11:24 Plt Count 267 thou/uL (130-400) 05/23/20 11:24 Neutrophils % 45.5 % (42.0-75.0) 05/23/20 11:24 Sodium 138 mmol/L (136-145) 05/23/20 11:24 Potassium 3.9 mmol/L (3.5-5.1) 05/23/20 11:24 Chloride 106 mmol/L (98-107) 05/23/20 11:24 Carbon Dioxide 24 mmol/L (22-29) 05/23/20 11:24 BUN 11 mg/dL (7.0-18.7) 05/23/20 11:24 Creatinine 0.75 mg/dL (0.6-1.1) 05/23/20 11:24 Glucose 87 mg/dL (70-105) 05/23/20 11:24 Calcium 9.1 mg/dL (7.8-10.44) 05/23/20 11:24 Total Bilirubin 0.6 mg/dL (0.2-1.2) 05/23/20 11:24 AST 16 U/L (5-34) 05/23/20 11:24 ALT 18 U/L (8-55) 05/23/20 11:24 Alkaline Phosphatase 81 U/L (40-110) 05/23/20 11:24 Creatine Kinase 132 U/L (29-168) 05/23/20 11:24 Troponin I Less than 0.010 ng/mL (< 0.028) 05/23/20 11:24 Serum Total Protein 7.4 g/dL (6.0-8.3) 05/23/20 11:24 Albumin 4.0 g/dL (3.5-5.0) 05/23/20 11:24 - EKG Interpretation EKG: Sinus bradycardia 52 bpm with no ectopic beats - Radiology Interpretation Chest x-ray Status: image reviewed by me, report reviewed by me Additional Comment: Exam: Chest one view HISTORY:Left-sided numbness. Stroke. Comparison: 02/12/2020 FINDINGS: Cardiac silhouette: Normal Aorta: Unremarkable Pulmonary vessels: Normal Costophrenic angles: Clear LUNGS: No masses or consolidation. Pneumothorax: None Osseous abnormalities: None IMPRESSION: No acute cardiopulmonary process. CT scan - chest Status: report reviewed by me Additional Comment: Exam: Head CT without contrast HISTORY: Level 2 stroke. History of ischemic stroke in January. Numbness. Dizziness. Vertigo. COMPARISON: 02/12/2020 FINDINGS: Hemorrhage: No intraparenchymal hemorrhage or extra-axial hematoma. Brain parenchyma: Cortical jacobo-white matter differentiation is preserved. No mass effect or midline shift. Basilar cisterns are patent. Ventricular system: Ventricles and sulci are patent and symmetric. Calvarium: Intact. Sinuses and mastoid air cells: Adequate aeration. IMPRESSION: No acute intracranial process. ASSESSMENT AND PLAN: (1) COVID-19 Code(s): U07.1 - COVID-19 Status: Acute (2) Dizziness Code(s): R42 - DIZZINESS AND GIDDINESS (3) Headache Status: Acute Ms. Ritika Montez is admitted because of an episode of headache with dizziness and left facial and left arm paresthesias and numbness, which resolved and headache is also better per the patient, now her left arm feels heavy at times, but the tingling and numbness has been resolved and headache has also been resolved. MRI of the brain reviewed, which was negative for acute intracranial pathology, most likely complicated migraine with neurological features. The patient is almost back to her baseline. She is COVID positive with no acute COVID symptoms at this time. Continue home medications. Strict control of blood pressure and blood glucose. Continue neuro checks every 4 hours. Continue medical management per primary team. No further recommendations from Neurology perspective. She should follow up with Dr. Moseley as outpatient for management of migraine. Thank you for the consult. Job ID: [id number] [facility]IT[facility]owell
--- NOTE | 2020-05-24 13:58 | DIS ---
DATE OF ADMISSION: 05/23/2020 DATE OF DISCHARGE: 05/24/2020 FINAL DIAGNOSES: Coronavirus infection, asymptomatic, complex migraine, dyslipidemia. DISCHARGE MEDICATIONS: 1. Decadron 6 mg a day x7 days. 2. Atorvastatin 40 mg a day. 3. Aspirin 81 mg a day. ALLERGIES: NO KNOWN DRUG ALLERGIES. CODE STATUS: Full. DIET: Heart healthy. PENDING AT TIME OF DISCHARGE: Nothing. CONSULTATIONS: Dr. Rachel Bravo. PROCEDURES: None. HOSPITAL COURSE: The patient admitted through the [facility] to the Hospitalist Service with dizziness, paresthesia. She was admitted with a diagnosis of TIA versus migraine headache. Initial laboratory; CBC normal. INR normal, metabolic profile normal. Urine a few leukocytes with squamous cells suspicious of contaminant. Brain CT, no acute intracranial process. Brain MRI, no acute finding. When I saw her symptoms have essentially resolved. She had an incidental COVID positive test. I did acute phase reactants. D-dimer is less than 0.27. Ferritin is 6.03. CRP is less than 0.05. The patient's chest is clear. She has no cough, etc., etc. She is being discharged for followup with her PCP [facility] in 3-7 days. She has been given a prescription for a total of 8 days of Decadron. She has been instructed to return to the emergency room for fever, shortness of breath, cough, etc. Job ID: [id number]
== END 2020-05-24 15:23 | disposition home or self-care (01) ==
LOC: ERS 11:05 → 2SE 12:56
PROVIDERS: ADMIT Internal Medicine; ATTEND Internal Medicine
DX: U07.1 COVID-19 (principal); R51.9 Headache, unspecified; R42 Dizziness and giddiness; R20.2 Paresthesia of skin; R20.0 Anesthesia of skin; Z79.82 Long term (current) use of aspirin; Z79.899 Other long term (current) drug therapy
CPT/HCPCS: 36415; 36416; 70450; 70551; 71045; 80048; 80053; 80061; 81001; 82550; 82728; 84484; 85025; 85379; 85610; 85730; 86140; 87635; 90471; 90662; 93005; 96374; G0008; G0378; J1100; U0003